=== PATIENT | female | born 1955 | race Caucasian/White ===

== ENCOUNTER → 2016-07-22 | Outpatient (CLI) | payer MEDICARE, OTHER ==
[2016-07-22 11:01] LABS: Albumin 3.8 g/dL (3.4-5.0); BUN/Creatinine Ratio 13.5; Bilirubin, Total 0.4 mg/dL (0.2-1.0); Calcium 8.9 mg/dL (8.5-10.1); Potassium 4.4 mmol/L (3.5-5.1); Total Protein 7.3 g/dL (6.4-8.2)
[2016-07-22 11:05] LABS: Basophils # (auto) 0 uL; Basophils % (auto) 0.4 % (0.0-2.0); Eosinophils # (auto) 0.1 uL; Eosinophils % (auto) 1.3 % (0.0-7.0); Hematocrit 44.1 % (36.0-46.0); Hemoglobin 14.1 g/dL (12.2-16.2); Lymphocytes # (auto) 2.8 uL; Lymphocytes % (auto) 31.6 % (10.0-50.0); Mean Corpuscular Hemoglobin 27.2 pg (28.0-32.0); Mean Corpuscular Volume 84.9 fL (80.0-100.0); Mean Platelet Volume 8.5 fL (7.4-10.4); Monocytes # (auto) 0.7 uL; Monocytes % (auto) 7.6 % (0.0-12.0); Neutrophils # (auto) 5.3 uL; Neutrophils % (auto) 59.1 % (37.0-80.0); Platelet Count (auto) 271 10^3/uL (140-450)
== END | disposition home or self-care (01) ==
LOC: LAB 10:09
DX: I10 Essential (primary) hypertension (principal); M25.50 Pain in unspecified joint; M06.9 Rheumatoid arthritis, unspecified; D64.9 Anemia, unspecified; Z79.899 Other long term (current) drug therapy
CPT/HCPCS: 36415; 80053; 85025; 85652; 86141

== ENCOUNTER → 2016-10-28 | Outpatient (CLI) | payer MEDICARE, OTHER ==
[2016-10-28 09:51] LABS: Basophils # (auto) 0.1 uL; Basophils % (auto) 0.7 % (0.0-2.0); Eosinophils # (auto) 0.1 uL; Hemoglobin 14.6 g/dL (12.2-16.2); Lymphocytes # (auto) 2.4 uL; Lymphocytes % (auto) 27.6 % (10.0-50.0); Mean Corpuscular Hemoglobin 27.9 pg (28.0-32.0); Mean Corpuscular Hgb Conc. 33.8 g/dL (32.0-36.0); Mean Corpuscular Volume 82.4 fL (80.0-100.0); Mean Platelet Volume 8.5 fL (7.4-10.4); Monocytes # (auto) 0.7 uL; Monocytes % (auto) 8.1 % (0.0-12.0); Neutrophils # (auto) 5.6 uL; Neutrophils % (auto) 62.6 % (37.0-80.0); Platelet Count (auto) 286 10^3/uL (140-450); Red Cell Distribution Width 14.6 % (11.6-16.0); White Blood Cell 8.9 10^3/uL (4.4-10.8)
[2016-10-28 10:31] LABS: Albumin 3.9 g/dL (3.4-5.0); BUN/Creatinine Ratio 14.4; Bilirubin, Total 0.4 mg/dL (0.2-1.0); Calcium 9.2 mg/dL (8.5-10.1); Potassium 4.3 mmol/L (3.5-5.1); Total Protein 7.3 g/dL (6.4-8.2)
== END | disposition home or self-care (01) ==
LOC: LAB 09:34
DX: M06.9 Rheumatoid arthritis, unspecified (principal); M25.50 Pain in unspecified joint; D64.9 Anemia, unspecified; I10 Essential (primary) hypertension
CPT/HCPCS: 36415; 80053; 85025; 85652; 86141

== ENCOUNTER → 2017-05-12 | Outpatient (CLI) | payer MEDICARE, OTHER ==
[2017-05-12 10:28] LABS: Basophils # (auto) 0.1 uL; Basophils % (auto) 0.6 % (0.0-2.0); Eosinophils # (auto) 0.1 uL; Eosinophils % (auto) 0.8 % (0.0-7.0); Hematocrit 45.2 % (36.0-46.0); Hemoglobin 15.1 g/dL (12.2-16.2); Lymphocytes # (auto) 2.7 uL; Lymphocytes % (auto) 23.2 % (10.0-50.0); Mean Corpuscular Hemoglobin 27.9 pg (28.0-32.0); Mean Corpuscular Hgb Conc. 33.4 g/dL (32.0-36.0); Mean Corpuscular Volume 83.7 fL (80.0-100.0); Mean Platelet Volume 7.9 fL (6.9-10.8); Monocytes # (auto) 0.8 uL; Monocytes % (auto) 6.8 % (0.0-12.0); Neutrophils # (auto) 7.8 uL; Neutrophils % (auto) 68.6 % (37.0-80.0); Platelet Count (auto) 264 10^3/uL (140-450); White Blood Cell 11.4 10^3/uL (4.4-10.8)
[2017-05-12 11:05] LABS: BUN/Creatinine Ratio 13.2; Bilirubin, Total 0.4 mg/dL (0.2-1.0); Calcium 8.9 mg/dL (8.5-10.1); Total Protein 7.7 g/dL (6.4-8.2)
== END | disposition home or self-care (01) ==
LOC: LAB 09:55
DX: I10 Essential (primary) hypertension (principal); M06.9 Rheumatoid arthritis, unspecified; I70.0 Atherosclerosis of aorta; E78.00 Pure hypercholesterolemia, unspecified; D64.9 Anemia, unspecified; Z79.899 Other long term (current) drug therapy
CPT/HCPCS: 36415; 80053; 85025; 85652; 86141